=== PATIENT | female | born 1980 | race Caucasian/White ===

== ENCOUNTER 2018-01-28 08:42 | Emergency (ER) | payer OTHER ==
[2018-01-28 08:55] VITALS: BMI 29.8
[2018-01-28] MEDS ORDERED: ONDANSETRON 4 MG/2 ML VIAL IVPUSH ONE (09:32)
[2018-01-28] MEDS ORDERED: SODIUM CHLORIDE 1,000 ML IV STA ×2 (09:33→09:38)
[2018-01-28] MEDS ORDERED: ONDANSETRON 4 MG/2 ML VIAL ONE (09:42)
--- NOTE | 2018-01-28 09:44 | PDOC ---
History of Present Illness - General Chief Complaint: Nausea/Vomiting Stated Complaint: VOMITING, DIARRHEA (36 WKS ) Time Seen by Provider: 01/28/18 09:21 History Source: Patient Exam Limitations: No Limitations - History of Present Illness Initial Comments: 01/28/18 09:40 Patient is a 37F 36wks here today complaining of diffuse abdominal pain, nausea, vomiting, diarrhea for the past two days. The abdominal pain is diffuse without radiation to the back or hips. Patient denies blood in vomit or stool. Patient states that she's been able to tolerate small amount of PO this morning, but has had decreased PO intake. The abdominal pain is described as diffuse. She describes the pain as a cramping. She states that this pain does not feel like labor. Denies vaginal bleeding, water breaking. Past History - Past Medical History Allergies/Adverse Reactions: Allergies Allergy/AdvReac Type Severity Reaction Status Date / Time No Known Allergies Allergy Verified 01/28/18 08:50 Home Medications: Ambulatory Orders NK [No Known Home Medication] 08/13/15 Asthma: No Cancer: No Cardiac Disorders: No COPD: No DVT: No Diabetes: No HTN: No Seizures: No Thyroid Disease: No - Immunization History Immunization Up to Date: Yes - Suicide/Smoking/Psychosocial Hx Smoking History: Never smoked Have you smoked in the past 12 months: No Information on smoking cessation initiated: No Hx Alcohol Use: No Drug/Substance Use Hx: No Substance Use Type: None Hx Substance Use Treatment: No Review of Systems - Review of Systems Comments:: 01/28/18 10:37 GENERAL/CONSTITUTIONAL: No fever or chills. No weakness. CARDIOVASCULAR: No chest pain or shortness of breath RESPIRATORY: No cough, wheezing, or hemoptysis. GASTROINTESTINAL: Positive for nausea, vomiting, diarrhea. GENITOURINARY: No dysuria, frequency, or change in urination. MUSCULOSKELETAL: No joint or muscle swelling or pain. No neck or back pain. SKIN: No rash NEUROLOGIC: Positive for headache. Negative for vertigo, loss of consciousness, or change in strength/sensation. ENDOCRINE: No increased thirst. No abnormal weight change HEMATOLOGIC/LYMPHATIC: No anemia, easy bleeding, or history of blood clots. ALLERGIC/IMMUNOLOGIC: No hives or skin allergy. *Physical Exam - Vital Signs Last Vital Signs Temp Pulse Resp BP Pulse Ox 98.0 F 83 17 110/69 100 01/28/18 08:51 01/28/18 08:51 01/28/18 08:51 01/28/18 08:51 01/28/18 08:51 - Physical Exam Comments: 01/28/18 10:38 GENERAL: Awake, alert, and fully oriented, in no acute distress HEAD: No signs of trauma, normocephalic, atraumatic EYES: PERRLA, EOMI, sclera anicteric, conjunctiva clear ENT: Auricles normal inspection, hearing grossly normal, nares patent, oropharynx clear without exudates. Moist mucosa NECK: Normal ROM, supple, no lymphadenopathy, JVD, or masses LUNGS: No distress, speaks full sentences, clear to auscultation bilaterally HEART: Regular rate and rhythm, normal S1 and S2, no murmurs, rubs or gallops, peripheral pulses normal and equal bilaterally. ABDOMEN: Soft, gravid uterus, tender in RUQ, no rebound, no guarding EXTREMITIES: Normal inspection, Normal range of motion, no edema. No clubbing or cyanosis. NEUROLOGICAL: Cranial nerves II through XII grossly intact. Normal speech, no focal sensorimotor deficits SKIN: Warm, Dry, normal turgor, no rashes or lesions noted. ED Treatment Course - LABORATORY CBC & Chemistry Diagram: 01/28/18 09:32 01/28/18 09:32 - RADIOLOGY Radiology Studies Ordered: Category Date Time Status ABDOMEN US -LIMITED [US] Stat Ultrasound 01/28/18 09:33 Ordered LIMITED US [US] Stat Ultrasound 01/28/18 09:33 Ordered Medical Decision Making - Medical Decision Making 01/28/18 10:39 Patient is 37F 36wk woman here today with abdominal pain, nausea, vomiting, diarrhea. Vital signs stable and normal. PE shows possible RUQ tenderness, not very concerning exam. Will evaluate with cbc, cmp, lipase, beta quant, ua, RUQ us and us. Will treat with 2L fluids and zofran. 01/28/18 12:11 Laboratory Tests 01/28/18 01/28/18 01/28/18 09:32 09:32 10:30 WBC 9.7 Hgb 12.2 Hct 34.0 Plt Count 168 BUN 5 L Creatinine 0.5 L Creat Clearance w eGFR > 60 Beta HCG, Quant 2942.0 Urine Ketones 1+ H Urine HCG, Qual 01/28/18 10:30 WBC Hgb Hct Plt Count BUN Creatinine Creat Clearance w eGFR Beta HCG, Quant Urine Ketones Urine HCG, Qual Positive CBC normal. CMP reassuring. Beta quant 2942. Ketones positive. No other signs of infection. Blood type B-, no vaginal bleeding per history, will not give rhogam at this time. Patient has received rhogam in past. 01/28/18 13:15 US shows mild hydronephrosis, likely due to , no acute findings. On reassessment patient states that she feels much better. Will PO challenge. Ready to go to L&D for further observation. Will discharge home with zofran. *DC/Admit/Observation/Transfer Diagnosis at time of Disposition: Vomiting - Discharge Dispostion Disposition: HOME Condition at time of disposition: Good Admit: No - Referrals Referrals: Emma Pizano MD [Primary Care Provider] - - Patient Instructions Printed Discharge Instructions: DI for Vomiting -- Adult Additional Instructions: Please return if you have any new, worsening or concerning symptoms. Please call to make an appointment with your OB today. - Post Discharge Activity
[2018-01-28 10:11] LABS: BASO % 0.3 % (0-2.0); EOS % 0.7 % (0-4.5); HEMOGLOBIN 12.2 GM/dL (10.7-15.3); LYMPH % 13.7 % (8-40); MCH 32.5 pg (25.7-33.7); MCHC 35.8 g/dl (32.0-36.0); MEAN CELL VOLUME 90.9 fl (80-96); MEAN PLT VOLUME 7.2 fl (7.5-11.1); MONO % 7.5 % (3.8-10.2); NEUT % 77.8 % (42.8-82.8); PLATELET COUNT 168 K/MM3 (134-434); RBC 3.74 M/mm3 (3.60-5.2); RDW 13.7 % (11.6-15.6); WHITE BLOOD COUNT 9.7 K/mm3 (4.0-10.0)
[2018-01-28 10:25] LABS: ALBUMIN 3.1 g/dl (3.4-5.0); ANION GAP 9 (8-16); BLOOD UREA NITROGEN 5 mg/dL (7-18); CALCIUM 8.3 mg/dL (8.5-10.1); CHLORIDE 106 mmol/L (98-107); CO2 21 mmol/L (21-32); GLUCOSE,RANDOM 77 mg/dL (74-106); LIPASE 110 U/L (73-393); POTASSIUM 3.9 mmol/L (3.5-5.1); SODIUM 136 mmol/L (136-145)
[2018-01-28 10:35] LABS: ALK PHOS 171 U/L (45-117); BILIRUBIN,TOTAL 0.4 mg/dL (0.2-1.0); CREATININE 0.5 mg/dL (0.55-1.02); SGOT/AST 23 U/L (15-37); SGPT/ALT 25 U/L (12-78); TOT PROT 6.6 g/dl (6.4-8.2)
[2018-01-28 10:43] LABS: URINE APPEARANCE CLEAR; URINE BILIRUBIN NEGATIVE (NEGATIVE); URINE BLOOD NEGATIVE (NEGATIVE); URINE COLOR YELLOW; URINE GLUCOSE (UA) NEGATIVE (NEGATIVE); URINE KETONE 1+ (NEGATIVE); URINE LEUK ESTERASE NEGATIVE (NEGATIVE); URINE NITRITE NEGATIVE (NEGATIVE); URINE PROTEIN NEGATIVE (NEGATIVE); URINE UROBILINOGEN NEGATIVE mg/dL (0.2-1.0)
--- NOTE | 2018-01-28 14:52 | PDOC ---
Attending Attestation - HPI HPI: 01/28/18 14:54 The patient is an otherwise healthy 37-year-old female, , currently 36 weeks , who presents to the emergency department with abdominal pain, nausea, vomiting, and diarrhea for 2 days. She states her abdominal pain was intermittent yesterday but constant today. She describes her abdominal pain as a cramping and burning sensation located at the upper abdomen, non-radiating. She reports 4 episodes of non-bloody vomiting yesterday but none today. She reports diarrhea today. She denies any alleviating or exacerbating factors. The patient denies chest pain, shortness of breath, headache and dizziness. The patient denies fever, chills, throat pain, leg swelling, or vaginal bleeding. The patient denies dysuria, frequency, urgency and hematuria. - Physicial Exam PE: 01/28/18 14:54 Vitals: Triage Vital signs reviewed General Appearance: no acute distress, well nourished well developed, Head: Atraumatic, normocephalic Cardiac: Regular rate and rhythm, no murmurs, no rubs, no gallops, Lungs: Clear to auscultation bilateral, good air movement bilaterally, Abdomen: Soft, nondistended, normal bowel sounds, (+) mild upper abdominal tenderness Extremities: Full range of motion to all extremities, no cyanosis, clubbing, or edema Skin: Warm and dry, no rashes or lesions, no petechiae Psych: normal mood, normal affect <Harriet Whaley - Last Filed: 01/28/18 14:54> - Resident Resident Name: Jaen Mendiola - ED Attending Attestation I have performed the following: I have examined & evaluated the patient, The case was reviewed & discussed with the resident, I agree w/resident's findings & plan, Exceptions are as noted - Medical Decision Making 36 weeks presents to the emergency department with 2 day history of nausea vomiting diarrhea History examination consistent with most likely viral GI illness no abdominal pain on examination no vaginal bleeding we'll check labs hydrate Zofran and reassess Reevaluation patient feels much better now tolerating fluids by mouth no longer vomiting Laboratory analysis grossly unremarkable Patient sent to L&D for monitoring prior to discharge. Findings, the need for follow-up and strict return instructions discussed with patient. <Adrian Porter - Last Filed: 01/28/18 19:19>
[2018-01-28 15:58] VITALS: BP 103/64; PULSE 84; TEMP 98.8
== END 2018-01-28 16:18 | disposition home or self-care (01) ==
LOC: JER 08:42
PROC: 3E033GC Introduction of Other Therapeutic Substance into Peripheral Vein, Percutaneous Approach (ICD-10-PCS; principal; 2018-01-28)
PROC: 3E0337Z Introduction of Electrolytic and Water Balance Substance into Peripheral Vein, Percutaneous Approach (ICD-10-PCS; 2018-01-28)
DX: O26.893 Other specified pregnancy related conditions, third trimester (principal); Z3A.32 32 weeks gestation of pregnancy; R11.10 Vomiting, unspecified
CPT/HCPCS: 36415; 76705-TC; 76815-TC; 80053; 81003; 83690; 84702; 84703; 85025; 86850; 86870; 86900; 86901; 86902; 99283-25

== ENCOUNTER 2018-02-16 03:00 | Inpatient (IN) | payer OTHER ==
[2018-02-16] MEDS ORDERED: DEXTROSE 5%-LACTATED RINGERS 1,000 ML IV SCH (03:40)
[2018-02-16] MEDS ORDERED: PROMETHAZINE HCL 25 MG/1 ML VIAL IVPB ONE (04:35)
[2018-02-16] MEDS ORDERED: BUTORPHANOL TARTRATE 1 MG/ML VIAL IVPB ONE (04:35)
[2018-02-16 04:36] VITALS: BMI 30.5
[2018-02-16 04:38] LABS: BASO % 0.2 % (0-2.0); EOS % 2.3 % (0-4.5); HEMOGLOBIN 11.8 GM/dL (10.7-15.3); LYMPH % 21.8 % (8-40); MCH 32.8 pg (25.7-33.7); MCHC 35.8 g/dl (32.0-36.0); MEAN CELL VOLUME 91.6 fl (80-96); MEAN PLT VOLUME 7.6 fl (7.5-11.1); NEUT % 70.7 % (42.8-82.8); PLATELET COUNT 139 K/MM3 (134-434); RBC 3.61 M/mm3 (3.60-5.2); RDW 13.9 % (11.6-15.6); WHITE BLOOD COUNT 7.5 K/mm3 (4.0-10.0)
[2018-02-16] MEDS ORDERED: BUTORPHANOL TARTRATE 1 MG/ML VIAL ONE ×2 (04:41)
[2018-02-16] MEDS ORDERED: PROMETHAZINE HCL 25 MG/1 ML VIAL ONE (04:41)
[2018-02-16 05:01] LABS: INR 0.99 (0.82-1.09); PROTHROMBIN TIME (PATIENT) 11.2 SEC (9.98-11.88)
[2018-02-16 05:09] LABS: ACTIVATED PTT 28.1 SECONDS (26.9-34.4)
[2018-02-16] MEDS ORDERED: OXYTOCIN 20 UNITS in 0.9% NS 20 UNIT/1,000 ML INFUS.BAG IV ONE ×2 (05:58→07:51)
--- NOTE | 2018-02-16 06:06 | HP ---
Past Medical History - Admission Chief Complaint: Labor pain History of Present Illness: 37 yo @ 39 weeks gestation, EDC 02/23/18, presents to L&D c/o labor pain. Upon admission there was evidence of leakage of fluid. History Source: Patient Limitations to Obtaining History: No Limitations - Past Medical History ...: 3 ...Para: 2 ...Term: 2 ...: 0 ...Spon : 0 ...Induced : 0 ...Multiple Gestation: 0 ...LMP: 05/19/17 ... Weeks Gestation by Dates: 39.0 ...EDC by Dates: 02/23/18 ...EDC by Sono: 02/23/18 - Past Surgical History Past Surgical History: Yes: None Hx Myomectomy: No Hx Transabdominal Cerclage: No - Smoking History Smoking history: Never smoked Have you smoked in the past 12 months: No - Alcohol/Substance Use Hx Alcohol Use: No History of Substance Use: reports: None - Social History Usual Living Arrangement: Yes: With Significant Other History of Recent Travel: No Home Medications - Allergies Allergies/Adverse Reactions: Allergies Allergy/AdvReac Type Severity Reaction Status Date / Time No Known Allergies Allergy Verified 02/16/18 04:06 - Home Medications Home Medications: Ambulatory Orders Vit No.130/Iron/Folic [ Vitamins] 1 each PO HS 02/16/18 Review of Systems - Review of Systems Constitutional: reports: No Symptoms Eyes: reports: No Symptoms HENT: reports: No Symptoms Neck: reports: No Symptoms Cardiovascular: reports: No Symptoms Respiratory: reports: No Symptoms Gastrointestinal: reports: No Symptoms Genitourinary: reports: Pain Breasts: reports: No Symptoms Reported Musculoskeletal: reports: No Symptoms Integumentary: reports: No Symptoms Neurological: reports: No Symptoms Endocrine: reports: No Symptoms Hematology/Lymphatic: reports: No Symptoms Psychiatric: reports: No Symptoms Pain Intensity: 9 Physical Exam - Maternity Vital Signs: Vital Signs Temperature 97.5 F L 02/16/18 05:00 Pulse Rate 80 02/16/18 05:00 Respiratory Rate 20 02/16/18 05:00 Blood Pressure 105/67 02/16/18 05:00 O2 Sat by Pulse Oximetry (%) Constitutional: Yes: Well Nourished Eyes: Yes: Conjunctiva Clear HENT: Yes: Atraumatic Neck: Yes: Supple Cardiovascular: Yes: Regular Rate and Rhythm Lungs: Clear to auscultation - Abdominal Exam/OB Number of Fetuses: Single Presentation: Vertex Contractions: Yes Regularity: Regular Intensity: Mod/Strong - Vaginal Exam/OB Vaginal Bleediing: No Amniotic Membrane Status: Ruptured - Physical Exam ...Motor Strength: WNL Psychiatric: Yes: Alert, Oriented - Labs Lab Results: CBC, BMP 02/16/18 04:29 Problem List - Problems (1) Pain during labor Code(s): O99.89 - OTH DISEASES AND CONDITIONS COMPL PREG/CHLDBRTH; R52 - PAIN, UNSPECIFIED Assessment/Plan Active labor Admit to L&D Analgesia as needed Anticipate
[2018-02-16] MEDS ORDERED: BENZOCAINE 20% 57 GM BOTTLE TP PRN (06:36)
[2018-02-16] MEDS ORDERED: BISACODYL 10 MG SUPP.RECT RC PRN (06:36)
[2018-02-16] MEDS ORDERED: METHYLERGONOVINE MALEATE 0.2 MG/1 ML AMP IM PRN (06:36)
[2018-02-16] MEDS ORDERED: BENZOCAINE 28 GM HEMORRHOIDAL OINTMENT TP PRN (06:36)
[2018-02-16] MEDS ORDERED: WITCH HAZEL 50% (TUCKS) 40 PAD/JAR PAD TP PRN (06:36)
[2018-02-16 06:37] LABS: BLOOD UREA NITROGEN 6 mg/dL (7-18); CREATININE 0.6 mg/dL (0.55-1.02); GLUCOSE,RANDOM 233 mg/dL (74-106); SODIUM 137 mmol/L (136-145)
[2018-02-16 06:38] LABS: ANION GAP 8 (8-16); CALCIUM 8.4 mg/dL (8.5-10.1); CHLORIDE 107 mmol/L (98-107); CO2 22 mmol/L (21-32); POTASSIUM 3.4 mmol/L (3.5-5.1)
--- NOTE | 2018-02-16 06:39 | PN ---
Delivery - Delivery Vaginal Delivery: Spontaneous Type of Anesthesia: Local Episiotomy/Laceration: None EBL (cc): 300 Delivery, Single - Feeding Plan Initial Plan: Elected not to breastfeed exclusively throughout hospitalization Remarks - Remarks Remarks: Normal spontaneous vaginal delivery of a live boy over intact perineum. Nose / Oropharyn suctioned @ perineum. Cord clamps and cut. Placenta expelled spontaneously intact. EBL 300cc
[2018-02-16] MEDS ORDERED: OXYTOCIN 20 UNITS in 0.9% NS 20 UNIT/1,000 ML INFUS.BAG IV SCH (06:45)
[2018-02-16] MEDS: ACETAMINOPHEN 325 MG TABLET (FP) PO PRN (08:33)
[2018-02-16] MEDS: FERROUS SO4 325 MG TABLET (FP) PO SCH ×3 (08:33→17:09)
[2018-02-16] MEDS: IBUPROFEN 600 MG TABLET (FP) PO PRN (08:33)
[2018-02-16] MEDS: PRENATAL VITAMINS W/ FOLIC ACID TABLET (FP) PO SCH (10:11)
[2018-02-17] MEDS: IBUPROFEN 600 MG TABLET (FP) PO PRN ×2 (02:25→22:36)
[2018-02-17] MEDS: ACETAMINOPHEN 325 MG TABLET (FP) PO PRN ×2 (02:25→22:36)
[2018-02-17] MEDS: FERROUS SO4 325 MG TABLET (FP) PO SCH ×3 (07:59→16:55)
[2018-02-17 08:00] LABS: BASO % 0.3 % (0-2.0); HEMOGLOBIN 12.4 GM/dL (10.7-15.3); LYMPH % 18.2 % (8-40); MCH 32.3 pg (25.7-33.7); MCHC 35.3 g/dl (32.0-36.0); MEAN CELL VOLUME 91.4 fl (80-96); MEAN PLT VOLUME 7.4 fl (7.5-11.1); MONO % 7.6 % (3.8-10.2); NEUT % 71.9 % (42.8-82.8); PLATELET COUNT 158 K/MM3 (134-434); RBC 3.83 M/mm3 (3.60-5.2); WHITE BLOOD COUNT 12.9 K/mm3 (4.0-10.0)
--- NOTE | 2018-02-17 09:20 | PN ---
Post Progress Note - Subjective Subjective: 37 yo Para 3, status post vaginal delivery, seen and evaluated. Doing well, no complaints. Post Day: 1 Type of Delivery: Vital Signs: Vital Signs Temperature 97.9 F 02/17/18 09:10 Pulse Rate 80 02/17/18 09:10 Respiratory Rate 20 02/17/18 09:10 Blood Pressure 113/70 02/17/18 09:10 O2 Sat by Pulse Oximetry (%) 95 02/16/18 07:30 Breast Exam: Yes: Soft Uterus: Yes: Fundus Firm Abdomen/GI: Yes: Abdomen soft, Tolerating PO Lochia: Yes: Rubra Lochia, amount: Small Extremities: Yes: Calves non-tender Perineum: Yes: Intact Activity: Ambulating - Labs Labs: CBC WBC 12.9 K/mm3 (4.0-10.0) H D 02/17/18 06:50 RBC 3.83 M/mm3 (3.60-5.2) 02/17/18 06:50 Hgb 12.4 GM/dL (10.7-15.3) 02/17/18 06:50 Hct 35.0 % (32.4-45.2) 02/17/18 06:50 MCV 91.4 fl (80-96) 02/17/18 06:50 MCH 32.3 pg (25.7-33.7) 02/17/18 06:50 MCHC 35.3 g/dl (32.0-36.0) 02/17/18 06:50 RDW 14.0 % (11.6-15.6) 02/17/18 06:50 Plt Count 158 K/MM3 (134-434) 02/17/18 06:50 MPV 7.4 fl (7.5-11.1) L 02/17/18 06:50 Neutrophils % 71.9 % (42.8-82.8) 02/17/18 06:50 Lymphocytes % 18.2 % (8-40) 02/17/18 06:50 Monocytes % 7.6 % (3.8-10.2) 02/17/18 06:50 Eosinophils % 2.0 % (0-4.5) 02/17/18 06:50 Basophils % 0.3 % (0-2.0) 02/17/18 06:50 Problem List - Problems (1) Pain during labor Code(s): O99.89 - OTH DISEASES AND CONDITIONS COMPL PREG/CHLDBRTH; R52 - PAIN, UNSPECIFIED (2) Status post vaginal delivery Code(s): MJO5886 - Assessment/Plan Status post vaginal delivery Stable Continue routine care
[2018-02-17] MEDS: PRENATAL VITAMINS W/ FOLIC ACID TABLET (FP) PO SCH (09:45)
[2018-02-17 20:53] VITALS: TEMP 98.3
[2018-02-17] MEDS ORDERED: SENNOSIDES/DOCUSATE COMBO (SENNA PLUS) TABLET (UD) PO PRN (22:00)
[2018-02-18] MEDS: FERROUS SO4 325 MG TABLET (FP) PO SCH (07:53)
[2018-02-18] MEDS: PRENATAL VITAMINS W/ FOLIC ACID TABLET (FP) PO SCH (09:04)
[2018-02-18 09:37] VITALS: BP 117/77; PULSE 81
--- NOTE | 2018-02-18 09:41 | DS ---
Physical Exam-PROGRAM EVALUATOR Vital Signs: Vital Signs Temperature 98.3 F 02/18/18 09:37 Pulse Rate 81 02/18/18 09:37 Respiratory Rate 18 02/18/18 09:37 Blood Pressure 117/77 02/18/18 09:37 O2 Sat by Pulse Oximetry (%) 95 02/16/18 07:30 Constitutional: Yes: Well Nourished Eyes: Yes: Conjunctiva Clear HENT: Yes: Atraumatic Neck: Yes: Supple Cardiovascular: Yes: Regular Rate and Rhythm Respiratory: Yes: Regular Gastrointestinal: Yes: Normal Bowel Sounds External Genitalia: Yes: Normal Vaginal Exam: Yes: Normal Cervix: Yes: Normal Uterus: Yes: Firm ....Post : Yes: Uterus firm, Moderate lochia serosa Breast(s): Yes: WNL Musculoskeletal: Yes: WNL Extremities: Yes: WNL Neurological: Yes: Alert, Oriented ...Motor Strength: WNL Psychiatric: Yes: Alert, Oriented Labs: CBC, BMP 02/17/18 06:50 02/16/18 04:29 Delivery - Delivery Vaginal Delivery: Spontaneous Type of Anesthesia: Local Episiotomy/Laceration: None EBL (cc): 300 Delivery, Single - Stages of Labor Date 1st Stage Initiatied: 02/16/18 Time 1st Stage Initiated: 02:30 Date 2nd Stage Initiated: 02/16/18 Time 2nd Stage Initiated: 06:10 Date of Delivery: 02/16/18 Time of Delivery: 06:30 Time Placenta Delivered: 06:34 - Condition of Infant Final Application Reviewer/Garden Tractor Mechanic Present: No Infant Gender: Male Weight: 7 lb 12 oz Position: Right, OA Total Hours ROM (Hrs/Mins): 4 hours 4 minutes - 1 Minute Total Score: 9 5 Minutes Total Score: 9 - Feeding Plan Initial Plan: Elected not to breastfeed exclusively throughout hospitalization Discharge Summary Reason For Visit: LABOR ADMIT Current Active Problems Pain during labor (Acute) Status post vaginal delivery (Acute) Procedures: Principal: Normal vaginal delivery Hospital Course: Routine care Condition: Good - Instructions Diet, Activity, Other Instructions: Regular diet No douching, no sexual intercourse x 6 weeks F/U in clinic in 6 weeks Disposition: HOME - Home Medications Comprehensive Discharge Medication List: Ambulatory Orders Vit No.130/Iron/Folic [ Vitamins] 1 each PO HS 02/16/18
== END 2018-02-18 11:00 | disposition home or self-care (01) | DRG 560 ==
LOC: JDEL 03:00 → JLDR 04:00 → J3W 08:22
PROVIDERS: ADMIT Obstetrics & Gynecology; ATTEND Obstetrics & Gynecology
PROC: 10E0XZZ Delivery of Products of Conception, External Approach (ICD-10-PCS; principal; 2018-02-16)
DX: O42.02 Full-term premature rupture of membranes, onset of labor within 24 hours of rupture (principal); Z3A.39 39 weeks gestation of pregnancy; Z37.0 Single live birth
CPT/HCPCS: 36415; 59409; 71046-TC-FY; 80048; 85025; 85461; 85610; 85730; 86593; 86850; 86870; 86900; 86901; 86902; 86999